=== PATIENT | male | born 1980 | race Caucasian/White ===

== ENCOUNTER 2020-11-12 10:03 | Emergency (ER) | payer SELFPAY ==
[~2020-11-12] VITALS: Ht 167.6 cm; Wt 68.0 kg
[2020-11-12] MEDS ORDERED: TDAP DIPH,PERTUSS,TET VAC/PF 0.5 ML DISP.SYRIN IM ONE ×2 (10:30→10:52)
[2020-11-12] MEDS ORDERED: NEOMY/BACITRA/POLYMYXIN B OINT UD PACKET TP ONE ×2 (10:30→10:52)
[2020-11-12] MEDS ORDERED: LIDOCAINE HCL 2% 20 ML VIAL TP ONE (10:30)
[2020-11-12] MEDS ORDERED: CEphaleXIN 500 MG CAPSULE PO ONE (10:30)
[2020-11-12] MEDS ORDERED: CEphaleXIN 500 MG CAPSULE ONE (10:52)
[2020-11-12] MEDS ORDERED: LIDOCAINE HCL 2% 20 ML VIAL ONE (10:53)
--- NOTE | 2020-11-12 11:00 | NUR ---
PT IS IN ROOM #2A. DR KAN EVALUATED THE PT.
--- NOTE | 2020-11-12 14:06 | NUR ---
PT WAS D/C'd TO HOME. D/C INSTRUCTIONS GIVEN TO THE PT BY DR KAN.
[2020-11-12 14:07] VITALS: BP 136/84
== END 2020-11-12 14:08 | disposition home or self-care (01) ==
LOC: ER 10:03
DX: S61.412A Laceration without foreign body of left hand, initial encounter (principal); S61.215A Laceration without foreign body of left ring finger without damage to nail, initial encounter; W29.8XXA Contact with other powered hand tools and household machinery, initial encounter; Y93.H3 Activity, building and construction; Y92.69 Other specified industrial and construction area as the place of occurrence of the external cause; Y99.0 Civilian activity done for income or pay
CPT/HCPCS: 12004; 73130; 90471; 90715; 99284; J3490; A4217; A4663